=== PATIENT | female | born 1990 | race Caucasian/White ===

== ENCOUNTER 2017-10-12 21:18 | Inpatient (IN) | payer OTHER ==
[~2017-10-12] VITALS: Ht 175.3 cm; Wt 2.3 kg
[2017-10-12] MEDS ORDERED: ASA81 MG PO (21:57)
[2017-10-12] MEDS ORDERED: PRENATAL TABLE1 EAC1 PO (21:57)
== END 2017-10-20 20:24 | disposition home or self-care (01) | DRG 766 ==
LOC: LDR 21:18 → OB/GYN 21:18 → LDR 21:55 → OB/GYN 10-14 12:22
PROVIDERS: Obstetrics & Gynecology Obstetrics
PROC: BY4FZZZ Ultrasonography of Third Trimester, Single Fetus (ICD-10-PCS; 2017-10-12)
PROC: 4A1HXCZ Monitoring of Products of Conception, Cardiac Rate, External Approach (ICD-10-PCS; 2017-10-12)
PROC: 10D00Z1 Extraction of Products of Conception, Low, Open Approach (ICD-10-PCS; principal; 2017-10-16 12:00)
DX: O14.14 Severe pre-eclampsia complicating childbirth (principal); O99.824 Streptococcus B carrier state complicating childbirth; Z3A.37 37 weeks gestation of pregnancy; Z37.0 Single live birth